=== PATIENT | female | born 1935 | race Caucasian/White ===

== ENCOUNTER → 2018-05-19 | Outpatient (REF) | payer MEDICARE, OTHER ==
[~2018-05-19] MED LIST: ALENDRONATE70 MG PO; AMBIEN5 MG PO; AMOXICILLIN500 MG PO; AMPHETAMINE10 M1 PO; CELEBREX100 MG PO; CLARITIN10 M1 PO; LEVOTHYROXIN50 MCG PO; PRILOSEC40 MG PO; TRAMADOL HCL50 MG PO; VITAMIN B-12500 MCG PO; VITAMIN B-625 MG PO; VITAMIN D400 MG PO
[2018-05-19 09:04] LABS: HEMATOCRIT 40.2 % (37.0-47.0); HEMOGLOBIN 13.3 g/dl (12.0-16.0); MEAN CELL VOLUME 96.4 fL CALC (80.0-100.0); MEAN CORPUSCULAR HGB 31.9 pG CALC (26.0-32.0); MEAN CORPUSCULAR HGB CONC 33.1 g/L CALC (32.0-36.0); RED BLOOD COUNT 4.17 mill/uL (4.20-5.60); RED CELL DISTRI WIDTH 13.2 % (11.5-15.5)
[2018-05-19 09:25] LABS: ALKALINE PHOSPHATASE 56 u/l (38-126); ANION GAP 13 (6-22 (CALC)); BILIRUBIN, TOTAL 0.5 mg/dL (0.0-1.4); BUN 10 mg/dL (8-23); BUN/CREATININE RATIO 14 (12-20 (CALC)); CARBON DIOXIDE 28 mmol/l (22-30); CHLORIDE 104 mmol/l (95-108); CREATININE 0.8 mg/dL (0.5-1.0); GFR > 60 ML/MIN (>=60 (CALC)); GFR FOR AFR.AMER. > 60 ML/MIN (>=60 (CALC)); POTASSIUM 4.4 mmol/l (3.5-5.1); SGOT/AST 24 u/l (9-36); SODIUM 141 mmol/l (137-146); TOTAL PROTEIN 6.7 g/dL (6.3-8.2)
[2018-05-19 09:53] LABS: TSH, 3RD GENERATION 2.57 uIU/mL (0.47 - 4.68)
== END | disposition home or self-care (01) ==
LOC: LAB 08:38
PROVIDERS: ATTEND Internal Medicine
DX: E03.9 Hypothyroidism, unspecified (principal)

== ENCOUNTER → 2018-10-12 | Outpatient (REF) | payer MEDICARE, OTHER | END | disposition home or self-care (01) | LOC: LAB 11:24 | PROVIDERS: ATTEND Optometrist | DX: M31.6 Other giant cell arteritis (principal) ==

== ENCOUNTER 2018-11-14 10:16 | Inpatient (IN) | payer MEDICARE, OTHER ==
[~2018-11-14] VITALS: Ht 165.1 cm; Wt 79.2 kg
[2018-11-14 10:57] LABS: HEMATOCRIT 40.2 % (37.0-47.0); HEMOGLOBIN 13.1 g/dl (12.0-16.0); IMMATURE GRANULOCYTES 0.7 % (0.0-5.0); MEAN CELL VOLUME 96.6 fL CALC (80.0-100.0); MEAN CORPUSCULAR HGB 31.5 pG CALC (26.0-32.0); MEAN CORPUSCULAR HGB CONC 32.6 g/L CALC (32.0-36.0); NEUT# 5.37 thou/uL (2.00-7.15); RED BLOOD COUNT 4.16 mill/uL (4.20-5.60); RED CELL DISTRI WIDTH 12.7 % (11.5-15.5)
[2018-11-14] MEDS ORDERED: LEXAPRO10 MG PO (10:57)
[2018-11-14 11:10] LABS: PROTHROMBIN TIME 10.4 SECONDS (9.0-12.5)
[2018-11-14 11:12] LABS: ANION GAP 16 (6-22 (CALC)); BUN 15 mg/dL (8-23); BUN/CREATININE RATIO 20 (12-20 (CALC)); CARBON DIOXIDE 21 mmol/l (22-30); CHLORIDE 107 mmol/l (95-108); CREATININE 0.7 mg/dL (0.5-1.0); GFR > 60 ML/MIN (>=60 (CALC)); GFR FOR AFR.AMER. > 60 ML/MIN (>=60 (CALC)); POTASSIUM 3.8 mmol/l (3.5-5.1); SODIUM 140 mmol/l (137-146)
[2018-11-14 15:07] VITALS: BP 150/88
[2018-11-14 18:45] VITALS: BP 131/60
[2018-11-14 21:57] LABS: URINE BILIRUBIN - DIPSTICK NEGATIVE (NEGATIVE); URINE BLOOD DIPSTICK LARGE (NEGATIVE); URINE COLOR YELLOW; URINE GLUCOSE - DIPSTICK 250 mg/dL (NEGATIVE); URINE KETONE NEGATIVE (NEGATIVE); URINE LEUK ESTERASE NEGATIVE (NEGATIVE); URINE NITRITE - DIPSTICK NEGATIVE (Negative); URINE PROTEIN - DIPSTICK NEGATIVE (NEG-TRACE); URINE SPECIFIC GRAVITY 1.015; URINE UROBILINOGEN - DIPSTICK 0.2 E.U./dL (0.2)
[2018-11-14 22:16] LABS: URINE RBC TNTC RBC/hpf (0-5); URINE SQUAMOUS EPITHELIAL CELL FEW EPI/hpf (0-FEW)
[2018-11-15] VITALS (10 sets, daily range): BP systolic 103–147; BP diastolic 50–68
[2018-11-15 05:33] LABS: HEMATOCRIT 38.4 % (37.0-47.0); HEMOGLOBIN 12.5 g/dl (12.0-16.0); IMMATURE GRANULOCYTES 0.3 % (0.0-5.0); MEAN CORPUSCULAR HGB 31.6 pG CALC (26.0-32.0); MEAN CORPUSCULAR HGB CONC 32.6 g/L CALC (32.0-36.0); NEUT# 7.38 thou/uL (2.00-7.15); RED BLOOD COUNT 3.96 mill/uL (4.20-5.60)
[2018-11-15 06:08] LABS: ALBUMIN 3.8 g/dL (3.2-5.0); ALKALINE PHOSPHATASE 65 u/l (38-126); AMYLASE 57 u/l (30-110); ANION GAP 12 (6-22 (CALC)); BILIRUBIN, TOTAL 0.8 mg/dL (0.0-1.4); BUN 12 mg/dL (8-23); BUN/CREATININE RATIO 19 (12-20 (CALC)); CARBON DIOXIDE 27 mmol/l (22-30); CHLORIDE 104 mmol/l (95-108); CREATININE 0.6 mg/dL (0.5-1.0); GFR > 60 ML/MIN (>=60 (CALC)); GFR FOR AFR.AMER. > 60 ML/MIN (>=60 (CALC)); LIPASE 30 u/l (23-300); MAGNESIUM 1.9 mg/dL (1.6-2.3); POTASSIUM 4.5 mmol/l (3.5-5.1); SGOT/AST 25 u/l (9-36); SODIUM 138 mmol/l (137-146); TOTAL PROTEIN 6.5 g/dL (6.3-8.2)
[2018-11-15 21:45] LABS: URINE BILIRUBIN - DIPSTICK NEGATIVE (NEGATIVE); URINE BLOOD DIPSTICK LARGE (NEGATIVE); URINE COLOR YELLOW; URINE GLUCOSE - DIPSTICK NEGATIVE (NEGATIVE); URINE KETONE NEGATIVE (NEGATIVE); URINE LEUK ESTERASE TRACE (Negative); URINE NITRITE - DIPSTICK POSITIVE (Negative); URINE PROTEIN - DIPSTICK TRACE mg/dL (NEG-TRACE); URINE SPECIFIC GRAVITY >=1.030; URINE UROBILINOGEN - DIPSTICK 0.2 E.U./dL (0.2)
[2018-11-15 21:49] LABS: URINE CLARITY SL CLOUDY
[2018-11-15 21:51] LABS: URINE SQUAMOUS EPITHELIAL CELL FEW EPI/hpf (0-FEW); URINE WBC 20-50 WBC/hpf (0-5)
[2018-11-16 04:41] VITALS: BP 113/71
[2018-11-16 05:37] LABS: IMMATURE GRANULOCYTES 0.5 % (0.0-5.0); MEAN CELL VOLUME 98.8 fL CALC (80.0-100.0); MEAN CORPUSCULAR HGB 32.1 pG CALC (26.0-32.0); MEAN CORPUSCULAR HGB CONC 32.5 g/L CALC (32.0-36.0); NEUT# 11.07 thou/uL (2.00-7.15); RED BLOOD COUNT 3.21 mill/uL (4.20-5.60); RED CELL DISTRI WIDTH 12.9 % (11.5-15.5)
[2018-11-16 05:47] LABS: HEMATOCRIT 31.7 % (37.0-47.0); HEMOGLOBIN 10.3 g/dl (12.0-16.0)
[2018-11-16 05:59] LABS: ALKALINE PHOSPHATASE 50 u/l (38-126); ANION GAP 10 (6-22 (CALC)); BILIRUBIN, TOTAL 0.5 mg/dL (0.0-1.4); BUN 9 mg/dL (8-23); BUN/CREATININE RATIO 16 (12-20 (CALC)); CARBON DIOXIDE 27 mmol/l (22-30); CHLORIDE 102 mmol/l (95-108); CREATININE 0.5 mg/dL (0.5-1.0); GFR > 60 ML/MIN (>=60 (CALC)); GFR FOR AFR.AMER. > 60 ML/MIN (>=60 (CALC)); MAGNESIUM 1.6 mg/dL (1.6-2.3); POTASSIUM 4.2 mmol/l (3.5-5.1); SGOT/AST 42 u/l (9-36); SODIUM 136 mmol/l (137-146); TOTAL PROTEIN 5.3 g/dL (6.3-8.2)
[2018-11-16 06:00] LABS: ALBUMIN 2.9 g/dL (3.2-5.0)
[2018-11-16 07:20] VITALS: BP 115/64
[2018-11-16] MEDS ORDERED: XALATAN 0.005%2.5 ML OU (10:31)
[2018-11-16 11:15] VITALS: BP 119/70
[2018-11-16 15:58] VITALS: BP 128/55
[2018-11-16 19:10] VITALS: BP 108/70
[2018-11-17 00:23] VITALS: BP 104/58
[2018-11-17 04:00] VITALS: BP 132/75
[2018-11-17 05:34] LABS: HEMOGLOBIN 9.4 g/dl (12.0-16.0); IMMATURE GRANULOCYTES 0.3 % (0.0-5.0); MEAN CELL VOLUME 97.3 fL CALC (80.0-100.0); MEAN CORPUSCULAR HGB 31.5 pG CALC (26.0-32.0); MEAN CORPUSCULAR HGB CONC 32.4 g/L CALC (32.0-36.0); NEUT# 10.27 thou/uL (2.00-7.15); RED BLOOD COUNT 2.98 mill/uL (4.20-5.60); RED CELL DISTRI WIDTH 12.8 % (11.5-15.5)
[2018-11-17 05:59] LABS: ALBUMIN 2.8 g/dL (3.2-5.0); ALKALINE PHOSPHATASE 52 u/l (38-126); ANION GAP 11 (6-22 (CALC)); BILIRUBIN, TOTAL 0.7 mg/dL (0.0-1.4); BUN 9 mg/dL (8-23); BUN/CREATININE RATIO 16 (12-20 (CALC)); CARBON DIOXIDE 28 mmol/l (22-30); CHLORIDE 100 mmol/l (95-108); CREATININE 0.5 mg/dL (0.5-1.0); GFR > 60 ML/MIN (>=60 (CALC)); GFR FOR AFR.AMER. > 60 ML/MIN (>=60 (CALC)); MAGNESIUM 1.8 mg/dL (1.6-2.3); POTASSIUM 3.9 mmol/l (3.5-5.1); SGOT/AST 37 u/l (9-36); SODIUM 135 mmol/l (137-146); TOTAL PROTEIN 5.2 g/dL (6.3-8.2)
[2018-11-17 08:21] VITALS: BP 108/60
[2018-11-17 11:26] VITALS: BP 119/69
[2018-11-17 16:15] VITALS: BP 114/77
[2018-11-17 19:35] VITALS: BP 116/60
[2018-11-18 00:12] VITALS: BP 120/67
[2018-11-18 03:54] VITALS: BP 126/77
[2018-11-18 05:39] LABS: HEMATOCRIT 24.7 % (37.0-47.0); HEMOGLOBIN 8.1 g/dl (12.0-16.0); IMMATURE GRANULOCYTES 0.3 % (0.0-5.0); MEAN CELL VOLUME 96.5 fL CALC (80.0-100.0); MEAN CORPUSCULAR HGB 31.6 pG CALC (26.0-32.0); MEAN CORPUSCULAR HGB CONC 32.8 g/L CALC (32.0-36.0); PLATELET COUNT 181 thou/uL (130-400); RED BLOOD COUNT 2.56 mill/uL (4.20-5.60)
[2018-11-18 05:53] LABS: ALBUMIN 2.5 g/dL (3.2-5.0); ALKALINE PHOSPHATASE 58 u/l (38-126); ANION GAP 8 (6-22 (CALC)); BILIRUBIN, TOTAL 0.6 mg/dL (0.0-1.4); BUN 8 mg/dL (8-23); BUN/CREATININE RATIO 15 (12-20 (CALC)); CARBON DIOXIDE 30 mmol/l (22-30); CHLORIDE 103 mmol/l (95-108); CREATININE 0.6 mg/dL (0.5-1.0); GFR > 60 ML/MIN (>=60 (CALC)); GFR FOR AFR.AMER. > 60 ML/MIN (>=60 (CALC)); POTASSIUM 3.6 mmol/l (3.5-5.1); SGOT/AST 34 u/l (9-36); SODIUM 137 mmol/l (137-146); TOTAL PROTEIN 4.6 g/dL (6.3-8.2)
[2018-11-18 06:13] LABS: HYPOCHROMIA MODERATE; MANUAL DIFFERENTIAL YES; PLATELET ESTIMATE NORMAL
[2018-11-18 08:15] VITALS: BP 120/65
[2018-11-18 11:00] VITALS: BP 118/59
[2018-11-18 14:50] VITALS: BP 109/62
[2018-11-18 18:49] VITALS: BP 107/67
[2018-11-19 04:07] VITALS: BP 115/69
[2018-11-19 05:38] LABS: HEMATOCRIT 24.7 % (37.0-47.0); IMMATURE GRANULOCYTES 0.5 % (0.0-5.0); MEAN CELL VOLUME 97.2 fL CALC (80.0-100.0); MEAN CORPUSCULAR HGB 31.5 pG CALC (26.0-32.0); MEAN CORPUSCULAR HGB CONC 32.4 g/L CALC (32.0-36.0); NEUT# 7.22 thou/uL (2.00-7.15); RED BLOOD COUNT 2.54 mill/uL (4.20-5.60); RED CELL DISTRI WIDTH 13.1 % (11.5-15.5)
[2018-11-19 05:56] LABS: ALBUMIN 2.5 g/dL (3.2-5.0); ALKALINE PHOSPHATASE 74 u/l (38-126); ANION GAP 8 (6-22 (CALC)); BILIRUBIN, TOTAL 0.6 mg/dL (0.0-1.4); BUN 10 mg/dL (8-23); BUN/CREATININE RATIO 19 (12-20 (CALC)); CARBON DIOXIDE 30 mmol/l (22-30); CHLORIDE 102 mmol/l (95-108); CREATININE 0.5 mg/dL (0.5-1.0); GFR > 60 ML/MIN (>=60 (CALC)); GFR FOR AFR.AMER. > 60 ML/MIN (>=60 (CALC)); MAGNESIUM 1.9 mg/dL (1.6-2.3); POTASSIUM 3.4 mmol/l (3.5-5.1); SGOT/AST 31 u/l (9-36); SODIUM 137 mmol/l (137-146); TOTAL PROTEIN 4.8 g/dL (6.3-8.2)
[2018-11-19 07:39] VITALS: BP 119/60
[2018-11-19 11:40] VITALS: BP 121/69
[2018-11-19 16:25] VITALS: BP 143/84
[2018-11-19 19:50] VITALS: BP 124/72
[2018-11-20 01:30] VITALS: BP 124/67
[2018-11-20 07:41] VITALS: BP 134/73
[2018-11-20] MEDS ORDERED: TRAMADOL HCL50 MG PO (12:12)
== END 2018-11-20 15:35 | DRG 470 ==
LOC: ED 10:16 → ED-I 13:30 → MS2 13:45 → ED 13:45 → MS2 13:45
PROVIDERS: Family Medicine; Nurse Practitioner Family; ADMIT Internal Medicine Nephrology; ATTEND Internal Medicine Nephrology
PROC: 0T9B70Z Drainage of Bladder with Drainage Device, Via Natural or Artificial Opening (ICD-10-PCS; 2018-11-14)
PROC: 0SR90JA Replacement of Right Hip Joint with Synthetic Substitute, Uncemented, Open Approach (ICD-10-PCS; principal; 2018-11-15)
PROC: 0QS604Z Reposition Right Upper Femur with Internal Fixation Device, Open Approach (ICD-10-PCS; 2018-11-15)
PROC: 0T9B70Z Drainage of Bladder with Drainage Device, Via Natural or Artificial Opening (ICD-10-PCS; 2018-11-17)
DX: S72.011A Unspecified intracapsular fracture of right femur, initial encounter for closed fracture (principal); S72.111A Displaced fracture of greater trochanter of right femur, initial encounter for closed fracture; G62.9 Polyneuropathy, unspecified; E03.9 Hypothyroidism, unspecified; F41.8 Other specified anxiety disorders; H40.9 Unspecified glaucoma; G47.00 Insomnia, unspecified; R32 Unspecified urinary incontinence; K59.00 Constipation, unspecified; M48.00 Spinal stenosis, site unspecified; R82.71 Bacteriuria; W18.30XA Fall on same level, unspecified, initial encounter
CPT/HCPCS: G0378; J0131; J1650